=== PATIENT | female | born 2005 | race Caucasian/White ===

== ENCOUNTER 2023-10-01 08:52 | Emergency (ER) | payer OTHER ==
[2023-10-01] MEDS ORDERED: Sodium Chloride 0.9% 10 ML Syringe FLUSH PRN (08:57)
[2023-10-01] MEDS ORDERED: Lactated Ringers 1,000 ML IV ONE (08:58)
[2023-10-01 09:50] LABS: APPEARANCE,URINE CLEAR (Clear); BILIRUBIN,URINE NEGATIVE (Negative); COLOR,URINE LIGHT YELLOW (Yellow); GLUCOSE,URINE NEGATIVE (Negative); KETONES,URINE NEGATIVE (Negative); LEUKOCYTE ESTERASE,URINE TRACE (Negative); NITRITE,URINE NEGATIVE (Negative); OCCULT BLOOD,URINE NEGATIVE (Negative); PROTEIN,URINE NEGATIVE (Negative); UROBILINOGEN,URINE 0.2 (0.2-1.0)
[2023-10-01 09:53] LABS: CORONAVIRUS COVID-19 NAA NEGATIVE (NEGATIVE); INFLUENZA A NAA NEGATIVE (NEGATIVE); RESPIRATORY SYNCYTIAL VIR NAA NEGATIVE (NEGATIVE)
[2023-10-01 09:55] LABS: BACTERIA,URINE MODERATE /hpf (FEW); MUCUS,URINE MODERATE /hpf (FEW); RBC,URINE 0-5 /hpf (0-5)
[2023-10-01 10:02] LABS: BASOPHILS ABSOLUTE AUTO 0.1 K/mm3 (0.0-0.2); BASOPHILS PERCENT AUTO 0.6 % (0.0-1.0); EOSINOPHILS ABSOLUTE AUTO 0.1 K/mm3 (0.0-0.4); EOSINOPHILS PERCENT AUTO 0.8 % (0.0-6.0); HEMATOCRIT 29.4 % (37.0-47.0); HEMOGLOBIN 10.1 gm/dl (12.0-16.0); IMMATURE GRAN ABSOLUTE AUTO 0.03 K/mm3 (0.00-0.05); IMMATURE GRAN PERCENT AUTO 0.3 % (0.0-0.4); LYMPHOCYTES ABSOLUTE AUTO 1.9 K/mm3 (1.0-4.8); LYMPHOCYTES PERCENT AUTO 21.8 % (24.0-44.0); MEAN CORPUSCULAR HGB CONC 34.4 g/dl (32.0-36.0); MEAN CORPUSCULAR VOLUME 87.2 fl (83.0-99.0); MEAN PLATELET VOLUME 8.7 fl (9.4-12.3); MONOCYTES ABSOLUTE AUTO 0.4 K/mm3 (0.0-0.8); MONOCYTES PERCENT AUTO 4.6 % (0.0-8.0); NEUTROPHILS ABSOLUTE AUTO 6.3 K/mm3 (1.8-7.7); NEUTROPHILS PERCENT AUTO 71.9 % (41.0-71.0); PLATELET COUNT,PLT 244 K/mm3 (150-400); RED BLOOD CELL COUNT 3.37 M/mm3 (4.10-5.30); WHITE BLOOD CELL COUNT,WBC 8.77 K/mm3 (3.9-11.3)
[2023-10-01] MEDS ORDERED: cefTRIAXone 1 GM in Sodium Chloride 0.9% 100 ML IV ONE (10:06)
[2023-10-01 10:30] LABS: A/G RATIO 0.9 (1-2); ALBUMIN 3.4 g/dl (3.4-5.0); ANION GAP 15.6 (5-15); BILIRUBIN TOTAL 0.7 mg/dL (0.2-1.0); CALCIUM 9.1 mg/dL (8.5-10.1); CREATININE 0.7 mg/dL (0.55-1.02); EST CRCL DRUG DOSING (CG) 92.08 mL/min; MAGNESIUM 1.8 mg/dL (1.8-2.4); POTASSIUM,K 3.6 mEq/L (3.5-5.1)
== END 2023-10-01 11:02 | disposition home or self-care (01) ==
LOC: JD.ED 08:52
DX: O26.811 Pregnancy related exhaustion and fatigue, first trimester (principal); O23.41 Unspecified infection of urinary tract in pregnancy, first trimester; O99.011 Anemia complicating pregnancy, first trimester; Z3A.13 13 weeks gestation of pregnancy; Z20.822 Contact with and (suspected) exposure to COVID-19
CPT/HCPCS: 0241U; 36415; 80053; 81001; 83735; 85025; 96361; 96365; 99284; J0696; J3490; J7120; 99283

== ENCOUNTER 2024-03-29 14:46 | Inpatient (IN) | payer OTHER ==
[2024-03-29] MEDS ORDERED: Nalbuphine 10 MG/ML Syringe IVPUSH PRN (15:18)
[2024-03-29] MEDS ORDERED: Calcium Carbonate 500 MG Tab.Chew PO PRN (15:18)
[2024-03-29] MEDS ORDERED: Lidocaine 1% 50 ML MDV INJECT PRN (15:18)
[2024-03-29] MEDS ORDERED: Ondansetron 4 MG/2 ML SDV IVPUSH PRN ×2 (15:18→21:08)
[2024-03-29] MEDS ORDERED: Sodium Chloride 0.9% 10 ML Syringe FLUSH PRN ×2 (15:18→21:52)
[2024-03-29] MEDS ORDERED: Lactated Ringers 1,000 ML IV SCH (15:30)
[2024-03-29] MEDS ORDERED: Oxytocin/Lactated Ringers 30 UNIT/500 ML BAG IV SCH ×2 (15:30)
[2024-03-29 16:02] LABS: BASOPHILS PERCENT AUTO 0.4 % (0.0-1.0); EOSINOPHILS PERCENT AUTO 0.4 % (0.0-6.0); HEMATOCRIT 32.4 % (37.0-47.0); HEMOGLOBIN 11.3 gm/dl (12.0-16.0); IMMATURE GRAN ABSOLUTE AUTO 0.07 K/mm3 (0.00-0.05); IMMATURE GRAN PERCENT AUTO 0.7 % (0.0-0.4); LYMPHOCYTES PERCENT AUTO 19.4 % (24.0-44.0); MEAN CORPUSCULAR HEMOGLOBIN 30.5 pg (28.0-32.0); MEAN CORPUSCULAR HGB CONC 34.9 g/dl (32.0-36.0); MEAN CORPUSCULAR VOLUME 87.6 fl (83.0-99.0); MEAN PLATELET VOLUME 9.3 fl (9.4-12.3); MONOCYTES ABSOLUTE AUTO 0.6 K/mm3 (0.0-0.8); MONOCYTES PERCENT AUTO 5.6 % (0.0-8.0); NEUTROPHILS ABSOLUTE AUTO 7.7 K/mm3 (1.8-7.7); NEUTROPHILS PERCENT AUTO 73.5 % (41.0-71.0); PLATELET COUNT,PLT 277 K/mm3 (150-400); WHITE BLOOD CELL COUNT,WBC 10.45 K/mm3 (3.9-11.3)
[2024-03-29] MEDS ORDERED: ceFAZolin 2 GM Vial ONE (19:28)
[2024-03-29] MEDS ORDERED: ePHEDrine 50 MG/ML SDV ONE (19:29)
[2024-03-29] MEDS: Citric Acid/Sodium Citrate Solution 30 ML Cup PO ONE (19:30)
[2024-03-29] MEDS: ceFAZolin 2 GM in Sodium Chloride 0.9% 50 ML IV ONE (19:30)
[2024-03-29] MEDS: Metoclopramide 10 MG/2 ML SDV IVPUSH ONE (19:30)
[2024-03-29] MEDS: Azithromycin 500 MG in Sodium Chloride 0.9% 250 ML IV ONE (19:30)
[2024-03-29] MEDS ORDERED: Morphine PF 10 MG/10 ML SDV ONE (19:45)
[2024-03-29] MEDS ORDERED: Morphine 10 MG/ML SDV ONE (19:45)
[2024-03-29] MEDS ORDERED: fentaNYL 100 MCG/2 ML SDV ONE (20:04)
[2024-03-29] MEDS ORDERED: Ketorolac 30 MG/ML SDV ONE (20:06)
[2024-03-29] MEDS ORDERED: Ondansetron 4 MG/2 ML SDV ONE (20:06)
[2024-03-29] MEDS ORDERED: dexmedeTOMIDine HCl 200 MCG/2 ML SDV ONE (20:07)
[2024-03-29] MEDS ORDERED: fentaNYL 100 MCG/2 ML SDV IVPUSH PRN (20:41)
[2024-03-29] MEDS ORDERED: Sodium Chloride 0.9% 10 ML Syringe FLUSH SCH (21:00)
[2024-03-29] MEDS ORDERED: Ibuprofen 600 MG Tab PO SCH (21:52)
[2024-03-29] MEDS ORDERED: Naloxone 0.4 MG/ML SDV IVPUSH PRN (21:52)
[2024-03-29] MEDS ORDERED: diphenhydrAMINE 50 MG/ML SDV IVPUSH PRN (21:52)
[2024-03-29] MEDS ORDERED: ePHEDrine 50 MG/ML SDV IVPUSH PRN (21:52)
[2024-03-29] MEDS ORDERED: Ondansetron 4 MG/2 ML SDV IV PRN (21:52)
[2024-03-29] MEDS: Dextrose 5%-Lactated Ringers 1,000 ML IV SCH (22:15)
[2024-03-30] MEDS: diphenhydrAMINE 50 MG/ML SDV IVPUSH PRN (01:05)
[2024-03-30] MEDS: Ketorolac 30 MG/ML SDV IVPUSH SCH (02:58)
[2024-03-30 05:33] LABS: HEMATOCRIT 25.3 % (37.0-47.0); HEMOGLOBIN 8.7 gm/dl (12.0-16.0); MEAN CORPUSCULAR HEMOGLOBIN 30.4 pg (28.0-32.0); MEAN CORPUSCULAR HGB CONC 34.4 g/dl (32.0-36.0); MEAN CORPUSCULAR VOLUME 88.5 fl (83.0-99.0); MEAN PLATELET VOLUME 9.1 fl (9.4-12.3); PLATELET COUNT,PLT 249 K/mm3 (150-400); RED BLOOD CELL COUNT 2.86 M/mm3 (4.10-5.30); WHITE BLOOD CELL COUNT,WBC 14.68 K/mm3 (3.9-11.3)
[2024-03-30] MEDS: Lactated Ringers 500 ML IV ONE (09:20)
[2024-03-30] MEDS: Ibuprofen 600 MG Tab PO SCH (19:48)
[2024-03-31] MEDS: Acetaminophen/oxyCODONE 325-5 MG Tab PO PRN ×2 (02:03→05:08)
[2024-03-31 06:22] LABS: HEMATOCRIT 23.9 % (37.0-47.0); MEAN CORPUSCULAR HEMOGLOBIN 30.8 pg (28.0-32.0); MEAN CORPUSCULAR HGB CONC 33.5 g/dl (32.0-36.0); MEAN CORPUSCULAR VOLUME 91.9 fl (83.0-99.0); PLATELET COUNT,PLT 255 K/mm3 (150-400); WHITE BLOOD CELL COUNT,WBC 12.17 K/mm3 (3.9-11.3)
[2024-03-31] MEDS: Docusate Sodium 100 MG Cap PO PRN (07:41)
[2024-03-31] MEDS: Ondansetron 4 MG Tab.DIS PO PRN (23:50)
[2024-03-31] MEDS: Simethicone 80 MG Tab.Chew PO PRN (23:50)
[2024-04-01] MEDS: Calcium Carbonate 500 MG Tab.Chew PO ONE (01:30)
[2024-04-01] MEDS: Famotidine 20 MG Tab PO ONE (01:30)
[2024-04-01 01:34] LABS: BASOPHILS PERCENT AUTO 0.4 % (0.0-1.0); EOSINOPHILS ABSOLUTE AUTO 0.2 K/mm3 (0.0-0.4); HEMATOCRIT 26.4 % (37.0-47.0); HEMOGLOBIN 8.8 gm/dl (12.0-16.0); IMMATURE GRAN ABSOLUTE AUTO 0.04 K/mm3 (0.00-0.05); IMMATURE GRAN PERCENT AUTO 0.4 % (0.0-0.4); LYMPHOCYTES ABSOLUTE AUTO 3.2 K/mm3 (1.0-4.8); LYMPHOCYTES PERCENT AUTO 28.3 % (24.0-44.0); MEAN CORPUSCULAR HEMOGLOBIN 30.7 pg (28.0-32.0); MEAN CORPUSCULAR HGB CONC 33.3 g/dl (32.0-36.0); MEAN PLATELET VOLUME 8.4 fl (9.4-12.3); MONOCYTES ABSOLUTE AUTO 0.6 K/mm3 (0.0-0.8); MONOCYTES PERCENT AUTO 5.4 % (0.0-8.0); NEUTROPHILS ABSOLUTE AUTO 7.1 K/mm3 (1.8-7.7); NEUTROPHILS PERCENT AUTO 63.5 % (41.0-71.0); PLATELET COUNT,PLT 289 K/mm3 (150-400); RED BLOOD CELL COUNT 2.87 M/mm3 (4.10-5.30); WHITE BLOOD CELL COUNT,WBC 11.14 K/mm3 (3.9-11.3)
[2024-04-01] MEDS: Measles, Mumps & Rubella Vaccine 0.5 ML SDV SUBCUT ONE (08:35)
== END 2024-04-01 13:55 | disposition home or self-care (01) | DRG 787 ==
LOC: JD.OB 14:46 → OBSVTOIN 20:00 → JD.OB 20:00
PROVIDERS: ADMIT Obstetrics & Gynecology; ATTEND Obstetrics & Gynecology
PROC: 10D00Z1 Extraction of Products of Conception, Low, Open Approach (ICD-10-PCS; principal; 2024-03-29 19:45)
DX: O99.72 Diseases of the skin and subcutaneous tissue complicating childbirth (principal); D62 Acute posthemorrhagic anemia; L29.8 Other pruritus; Z37.0 Single live birth; Z3A.39 39 weeks gestation of pregnancy; O99.344 Other mental disorders complicating childbirth; F41.9 Anxiety disorder, unspecified; F32.A Depression, unspecified; O76 Abnormality in fetal heart rate and rhythm complicating labor and delivery; O90.81 Anemia of the puerperium; O69.81X0 Labor and delivery complicated by cord around neck, without compression, not applicable or unspecified
CPT/HCPCS: 01961; 36415; 59025; 84484; 85025; 85027; 86592; 90471; 90707; 94762; 99140; A9270-GY; J0456; J0690; J1200; J1885; J2270; J2274; J2405; J2765; J3010; J3490; J7050; J7120; J7121; Q3014